=== PATIENT | male | born 1955 | race Caucasian/White ===

== ENCOUNTER 2019-12-08 21:02 | Emergency (ER) | payer OTHER ==
--- OUTSIDE RECORDS SUMMARY | 2019-12-08 21:21 | XMS ---
:1955 Author Organization [facility] Support Name Relationship Address Phone UE Unavailable Unavailable Unavailable [facility] [place] [address] Re-disclosure Warning The records that you are about to access may contain information from federally- assisted alcohol or drug abuse programs. If such information is present, then the following federally mandated warning applies: This information has been disclosed to you from records protected by federal confidentiality rules (42 CFR part 2). The federal rules prohibit you from making any further disclosure of this information unless further disclosure is expressly permitted by the written consent of the person to whom it pertains or as otherwise permitted by 42 CFR part 2. A general authorization for the release of medical or other information is NOT sufficient for this purpose. The Federal rules restrict any use of the information to criminally investigate or prosecute any alcohol or drug abuse patient.The records that you are about to access may contain highly sensitive health information, the redisclosure of which is protected by Article 27-F of the [facility] Public Health law. If you continue you may haveaccess to information: Regarding HIV / AIDS; Provided by facilities licensed or operated by the [facility] Office of Mental Health; or Provided by the [facility] Office for People With Developmental Disabilities. If such information is present, then the following [facility] mandated warning applies: This information has been disclosed to you from confidential records which are protected by state law. State law prohibits you from making any further disclosure of this information without the specific written consent of the person to whom it pertains, or as otherwise permitted by law. Any unauthorized further disclosure in violation of state law may result in a fine or half-way sentence or both. A general authorization for the release of medical or other information is NOT sufficient authorization for further disclosure. Insurance Providers Payer name Policy type Policy ID Covered Covered constitution party's Policy P alexandrea / Coverage constitution party ID relationship to [employer] type [employer] SELF PAY SP INSURANCE
--- NOTE | 2019-12-08 21:26 | PDOC ---
History of Present Illness - General Chief Complaint: Pain Stated Complaint: RASH TO RIGHT GROIN Time Seen by Provider: 12/08/19 21:18 - History of Present Illness Initial Comments: This 64-year-old man with multiple medical problems including NIDDM presents with worsening pain in groin rash. Patient was seen 4 days ago by with a erythematous rash of the medial aspects of bilateral thighs (extending somewhat to scrotal skin). He was prescribed Bactrim DS for 7 days and nystatin/triamcinolone ointment. Patient reports that the powder preparation was also prescribed at that time but this was not filled by the patient because he felt that he could not use the ointment and powder at the same time. In the last few days, patient describes persistent burning in the rash. He has no fever/chills, pain in his lower abdomen/perineal area/proximal thighs. Medication as noted below No known allergies Non-smoker/no alcohol or other recreational drugs Past History - Medical History Allergies/Adverse Reactions: Allergies Allergy/AdvReac Type Severity Reaction Status Date / Time No Known Allergies Allergy Verified 04/01/14 00:38 Home Medications: Ambulatory Orders Atorvastatin Ca [Lipitor] 10 mg PO HS #0 tablet 03/06/12 Lisinopril [Prinivil] 10 mg PO DAILY #30 tablet 03/06/12 Metoprolol Tartrate [Lopressor -] 25 mg PO BID #60 tab 03/06/12 Aspirin Coated [Ecotrin -] 81 mg PO DAILY 04/08/13 Glipizide [Glipizide ER] 10 mg PO BID 04/08/13 Ranitidine [Zantac -] 150 mg PO HS 04/08/13 Sitagliptin Phosphate [Januvia] 100 mg PO DAILY 04/08/13 metFORMIN HCL [Glucophage -] 500 mg PO AM 04/08/13 metFORMIN HCL [Glucophage] 1,000 mg PO HS 06/25/13 Cholecalciferol (Vitamin D3) [Vitamin D] 2,000 unit PO DAILY 12/08/13 Oxycodone HCl/Acetaminophen [Percocet 5/325 -] 1 - 2 tab PO Q4H #15 tablet 04/01/14 Diclofenac Sodium 75 mg PO BID PRN #20 tablet. 12/08/19 Diclofenac Sodium 75 mg PO BID PRN #20 tablet. 12/08/19 Miconazole 1 gm MC BID #20 gm 12/08/19 Miconazole 1 gm MC BID #20 gm 12/08/19 Anemia: No Asthma: Yes (CHILDHOOD,SLEEP APNEA) Cancer: No Cardiac Disorders: Yes CVA: No COPD: No CHF: No Dementia: No Diabetes: Yes (on oral agents) GI Disorders: Yes (REFLUX, HERNIA, abnormal liver function tests, chronic) Disorders: No HTN: Yes Hypercholesterolemia: Yes Liver Disease: Yes (elevated liver function tests, had sonogram, followed by GI on a regular ba) Seizures: Yes (EPILEPSY) Thyroid Disease: No - Immunization History Td Vaccination: Yes Immunization Up to Date: (UNSURE) - Psycho-Social/Smoking History Smoking Status: No Smoking History: Never smoked Have you smoked in the past 12 months: No Number of Cigarettes Smoked Daily: 0 Information on smoking cessation initiated: No - Substance Abuse Hx (Audit-C & DAST Scrn) How often the patient has a drink containing alcohol: Never Score: In Men: 4 or > Positive; In Women: 3 or > Positive: 0 Screen Result (Pos requires Nsg. Audit-10AR): Negative In the last yr the pt used illegal drug/Rx for NonMed reason: No Score: Yes response is considered Positive: 0 Screen Result (Positive result requires Nsg. DAST-10): Negative Review of Systems - Review of Systems Able to Perform ROS?: Yes Comments:: 12 point review of systems is negative except for what is noted in the history of present illness *Physical Exam - Vital Signs Last Vital Signs Temp Pulse Resp BP Pulse Ox 97.5 F L 82 18 144/85 99 12/08/19 21:07 12/08/19 21:07 12/08/19 21:07 12/08/19 21:07 12/08/19 21:07 - Physical Exam GENERAL: Adult male, morbidly obese, alert and oriented x3, no acute distress T 97.5 F orally HEAD: Normal with no signs of trauma. EYES: PERRLA, EOMI, sclera anicteric, conjunctiva clear. ENT: Ears normal, nares patent, oropharynx clear without exudates. Dry mucous membranes. NECK: Normal range of motion, supple without lymphadenopathy, JVD, or masses. LUNGS: Breath sounds equal, clear to auscultation bilaterally. No wheezes, and no crackles. HEART:Regular rate and rhythm, normal S1 and S2 without murmur, rub or gallop. ABDOMEN:.normal bowel sounds No guarding,tenderness or rebound.No masses No distention. Pelvis-8 cm x 6 cm erythematous, sharply delineated rash of proximal right medial thigh extending to right lateral surface of scrotum No vesicles, eschars or open area of the rash; area is macerated with significant moisture secondary to ointment and body secretions 5 cm x 4 cm erythematous, sharply delineated rash of proximal left medial thigh extending to left lateral surface of scrotum No edema, erythema, tenderness of perineum, lower abdomen, proximal thighs EXTREMITIES: Normal range of motion, no edema. No clubbing or cyanosis. No erythema, or tenderness. NEUROLOGICAL: Cranial nerves II through XII grossly intact. Normal speech. No focal neurological deficit Medical Decision Making - Medical Decision Making This 64-year-old man with multiple medical problems including NIDDM presents with persistent groin rash. He had been seen last week by his PMD; prescribed medications included Bactrim DS, antifungal/steroid ointment and powder (prescription was not filled). Exam as noted The area of the rash corresponds to where his medial thigh skin are in close contact with the scrotum (patient is morbidly obese and has deep skin folds). Appearance of the rash is most consistent with tinea cruris. On exam, the areas of the rash, especially the right side are extremely macerated. There is no evidence of deep soft tissue infection. Since patient did not fill the prescription for the presumably antifungal powder, he is only been using ointment on the area of the rash. Therefore, the area is extremely moist and the tinea infection has not been adequately treated. Therefore, prescription for miconazole powder sent to pharmacy ,to be started tonight and to be used twice a day. He should stop using the ointment but continue the Bactrim DS as prescribed for a full week. He should follow-up with within the next 2 to 3 days. If he has any signs of deep tissue infection such as increased pain in his groin/perineal area/upper thighs or if he develops fever/chills, he should return to the ER immediately Discharge - Discharge Information Problems reviewed: Yes Clinical Impression/Diagnosis: Tinea cruris Condition: Stable Disposition: HOME - Additional Discharge Information Prescriptions: Diclofenac Sodium 75 mg PO BID PRN #20 tablet.dr GRANADO Reason: Pain Diclofenac Sodium 75 mg PO BID PRN #20 tablet.dr GRANADO Reason: Pain Miconazole 1 gm MC BID #20 gm Miconazole 1 gm MC BID #20 gm - Follow up/Referral Referrals: Viviana Hernandez MD [Staff Physician] - 2 Days - Patient Discharge Instructions Patient Printed Discharge Instructions: Tinea Cruris: CAMACHO Campbell Itch Additional Instructions: Stop ointment Miconazole powder to rash twice a day for 2 weeks Continue antibiotics twice a day until course is finished Diclofenac 75 mg twice a day for pain; take with food Follow-up with within the next 2 to 3 days Return to ER immediately if you have worsening swelling/pain/redness in the area of the rash or if you develop fever/chills - Post Discharge Activity
[2019-12-08 21:38] VITALS: BP 144/85; PULSE 82; TEMP 97.5; BMI 37.2
== END 2019-12-08 22:06 | disposition home or self-care (01) ==
LOC: FER 21:02
DX: B35.4 Tinea corporis (principal)
CPT/HCPCS: 99282-25